=== PATIENT | female | born 1950 | race Asian ===

== ENCOUNTER 2023-10-17 07:54 | Inpatient (IN) | payer BC, OTHER ==
[~2023-10-17] VITALS: Ht 157.5 cm; Wt 41.9 kg
[2023-10-17 08:08] VITALS: BP_SYST 150; PULSE 61; RESP 18; TEMP 98.4; O2SAT 98
[2023-10-17] MEDS: NITROGLYCERIN 1 INCH (GM) OINT. TD ONE (08:23)
[2023-10-17 08:36] LABS: BASOPHILS % (AUTO) 0.5 % (0.0-2.0); EOSINOPHILS % (AUTO) 0.8 % (0.0-4.0); HEMATOCRIT 41.9 % (36-48); LYMPHOCYTES # (AUTO) 1.4 K/uL (1.0-5.5); LYMPHOCYTES % (AUTO) 30.1 % (20.5-51.5); MEAN CORPUSCULAR HEMOGLOBIN 31 pg (27-31); MEAN CORPUSCULAR HGB CONC 33 % (32-36); MEAN CORPUSCULAR VOLUME 93 fL (79.0-98.0); MONOCYTES # (AUTO) 0.3 K/uL (0.0-1.0); MONOCYTES % (AUTO) 7.4 % (1.7-9.3); NEUTROPHILS # (AUTO) 2.9 K/uL (1.8-7.7); NEUTROPHILS % (AUTO) 61.2 % (40.0-70.0); PLATELET COUNT (AUTO) 183 K/uL (130-430); RED BLOOD CELL COUNT(AUTO) 4.52 MIL/uL (4.2-6.2); RED CELL DISTRIBUTION WIDTH 13.9 % (9.0-15.0); WHITE BLOOD COUNT (AUTO) 4.7 K/uL (4.8-10.8)
[2023-10-17 09:02] LABS: INR 1.1 (0.8-1.2)
[2023-10-17 09:19] LABS: ANION GAP 10 (5-15); CALCIUM 9.1 mg/dL (8.4-11.0); CARBON DIOXIDE 28 mmol/L (23-29); CHLORIDE 104 mmol/L (98-107); CREATININE 0.79 mg/dL (0.55-1.30); GLUCOSE 113 mg/dL (74-106); POTASSIUM 4.4 mmol/L (3.5-5.1); SODIUM SERUM 142 mmol/L (136-145); UREA NITROGEN, BLOOD 17 mg/dL (8-21)
[2023-10-17] MEDS ORDERED: ATOR20TA64 PO (10:06)
[2023-10-17] MEDS ORDERED: APIX5TAB PO (10:06)
[2023-10-17] MEDS ORDERED: NALOXONE HCL 0.4 MG/ML AMP (NARCAN) IVP PRN ×2 (11:00)
[2023-10-17] MEDS ORDERED: ONDANSETRON HCL 4 MG/2 ML VIAL IVP PRN (11:00)
[2023-10-17] MEDS ORDERED: HYDROcodone/ACETAMIN 10-325 MG TAB PO PRN (11:00)
[2023-10-17] MEDS ORDERED: LORazepam 2 MG/ML VIAL IVP PRN (11:00)
[2023-10-17] MEDS ORDERED: ACETAMINOPHEN 325 MG TABLET PO PRN (11:00)
[2023-10-17] MEDS ORDERED: HYDROcodone/ACETAMIN 5-325 MG TAB (NORCO/ VICODIN) PO PRN (11:00)
[2023-10-17 12:21] VITALS: BP_SYST 110; PULSE 62; RESP 16; TEMP 99.3; O2SAT 99
[2023-10-17] MEDS: NORMAL SALINE 5 ML DISP.SYRIN IVF SCH (15:18)
[2023-10-17 16:00] VITALS: BP_SYST 98; PULSE 60; RESP 16; TEMP 98.2; O2SAT 98
[2023-10-17 20:00] VITALS: BP_SYST 94; PULSE 61; RESP 18; TEMP 99.1; O2SAT 98
[2023-10-17] MEDS: ATORVASTATIN 20 MG TABLET PO SCH (20:12)
[2023-10-17] MEDS: APIXABAN 2.5 MG TABLET PO SCH (20:16)
[2023-10-18 05:00] VITALS: BP_SYST 114; PULSE 60; RESP 18; O2SAT 98
[2023-10-18 05:08] LABS: BASOPHILS % (AUTO) 0.7 % (0.0-2.0); EOSINOPHILS # (AUTO) 0.1 K/uL (0.0-0.4); EOSINOPHILS % (AUTO) 1.1 % (0.0-4.0); HEMATOCRIT 39.7 % (36-48); HEMOGLOBIN 13.1 g/dL (12.0-16.0); LYMPHOCYTES # (AUTO) 1.6 K/uL (1.0-5.5); LYMPHOCYTES % (AUTO) 27.6 % (20.5-51.5); MEAN CORPUSCULAR HEMOGLOBIN 30 pg (27-31); MEAN CORPUSCULAR HGB CONC 33 % (32-36); MEAN CORPUSCULAR VOLUME 92 fL (79.0-98.0); MONOCYTES # (AUTO) 0.5 K/uL (0.0-1.0); NEUTROPHILS # (AUTO) 3.6 K/uL (1.8-7.7); NEUTROPHILS % (AUTO) 62.6 % (40.0-70.0); PLATELET COUNT (AUTO) 174 K/uL (130-430); RED CELL DISTRIBUTION WIDTH 13.4 % (9.0-15.0); WHITE BLOOD COUNT (AUTO) 5.8 K/uL (4.8-10.8)
[2023-10-18 05:43] LABS: ANION GAP 6 (5-15); CALCIUM 8.7 mg/dL (8.4-11.0); CARBON DIOXIDE 29 mmol/L (23-29); CHLORIDE 105 mmol/L (98-107); CHOLESTEROL 144 mg/dL (<200); CREATININE 0.68 mg/dL (0.55-1.30); GLUCOSE 94 mg/dL (74-106); HDL CHOLESTEROL 71 mg/dL (>55); POTASSIUM 4.5 mmol/L (3.5-5.1); SODIUM SERUM 140 mmol/L (136-145); TRIGLYCERIDES 29 mg/dL (30-150); UREA NITROGEN, BLOOD 16 mg/dL (8-21)
[2023-10-18 08:00] VITALS: O2SAT 99
[2023-10-18 08:01] VITALS: BP_SYST 122; PULSE 62; RESP 16; TEMP 99.2; O2SAT 99
[2023-10-18] MEDS ORDERED: PEG 400/HYPROMELLOSE/GLYCERIN 15 ML DROPS OP PRN (09:30)
[2023-10-18 11:30] VITALS: BP_SYST 121; PULSE 60; RESP 17; TEMP 98.6; O2SAT 97
[2023-10-18 17:14] VITALS: BP_SYST 115; PULSE 61; RESP 18; TEMP 97.9; O2SAT 99
[2023-10-18 17:18] VITALS: BP_SYST 103; PULSE 60; RESP 14; TEMP 99.4; O2SAT 96
== END 2023-10-17 18:00 | disposition home or self-care (01) | DRG 313 ==
LOC: SED 07:54 → STU 10:08
PROVIDERS: ADMIT Preventive Medicine Preventive Medicine/Occupational Environmental Medicine; ATTEND Preventive Medicine Preventive Medicine/Occupational Environmental Medicine
DX: R07.89 Other chest pain (principal); I24.9 Acute ischemic heart disease, unspecified; I25.10 Atherosclerotic heart disease of native coronary artery without angina pectoris; D72.819 Decreased white blood cell count, unspecified; R73.9 Hyperglycemia, unspecified; E78.5 Hyperlipidemia, unspecified; I25.2 Old myocardial infarction; Z95.0 Presence of cardiac pacemaker; Z79.899 Other long term (current) drug therapy
CPT/HCPCS: 36415; 71045; 80048; 80061; 82272; 83690; 83880; 84484; 85025; 85610; 85730; 93306; 95816; 97112-GP; 97116-GP; 99285; G0378